=== PATIENT | male | born 1950 | race Caucasian/White ===

== ENCOUNTER 2021-07-16 11:21 | Outpatient (CLI) | payer OTHER | END 2021-07-16 15:15 | disposition home or self-care (01) | LOC: LAB 11:21 | PROVIDERS: ATTEND Internal Medicine | DX: U07.1 COVID-19 (principal); Z20.822 Contact with and (suspected) exposure to COVID-19 ==

== ENCOUNTER 2021-10-21 10:28 | Outpatient (CLI) | payer OTHER | END 2021-10-21 10:30 | disposition home or self-care (01) | LOC: LAB 10:28 | DX: Z03.818 Encounter for observation for suspected exposure to other biological agents ruled out (principal) ==

== ENCOUNTER 2022-01-20 10:18 | Outpatient (CLI) | payer OTHER | END 2022-01-20 13:47 | disposition home or self-care (01) | LOC: LAB 10:18 | DX: C61 Malignant neoplasm of prostate (principal); Z03.818 Encounter for observation for suspected exposure to other biological agents ruled out ==

== ENCOUNTER 2022-03-16 08:23 | Outpatient (CLI) | payer OTHER | END 2022-03-16 08:24 | disposition home or self-care (01) | LOC: LAB 08:23 | DX: E11.9 Type 2 diabetes mellitus without complications (principal); E03.9 Hypothyroidism, unspecified; E78.5 Hyperlipidemia, unspecified; C61 Malignant neoplasm of prostate ==

== ENCOUNTER 2022-05-06 14:14 | Outpatient (CLI) | payer OTHER | END 2022-05-06 14:16 | disposition home or self-care (01) | LOC: LAB 14:14 | PROVIDERS: ATTEND Ophthalmology | DX: Z03.818 Encounter for observation for suspected exposure to other biological agents ruled out (principal) ==

== ENCOUNTER → 2022-07-07 11:34 | Outpatient (CLI) | payer OTHER | END | disposition home or self-care (01) | LOC: LAB 11:34 | PROVIDERS: ATTEND Internal Medicine | DX: U07.1 COVID-19 (principal); Z20.822 Contact with and (suspected) exposure to COVID-19 ==

== ENCOUNTER → 2022-07-21 11:17 | Outpatient (CLI) | payer OTHER | END | disposition home or self-care (01) | LOC: LAB 11:17 | PROVIDERS: ATTEND Internal Medicine | DX: N39.0 Urinary tract infection, site not specified (principal); N40.0 Benign prostatic hyperplasia without lower urinary tract symptoms; Z12.5 Encounter for screening for malignant neoplasm of prostate; C61 Malignant neoplasm of prostate ==

== ENCOUNTER 2022-08-31 10:43 | Outpatient (CLI) | payer OTHER | END 2022-08-31 10:47 | disposition home or self-care (01) | LOC: LAB 10:43 | PROVIDERS: ATTEND Internal Medicine | DX: U07.1 COVID-19 (principal) ==

== ENCOUNTER 2022-09-08 14:22 | Emergency (ER) | payer OTHER ==
[~2022-09-08] VITALS: Ht 170.2 cm; Wt 77.1 kg
[2022-09-08] MEDS ORDERED: METFORMIN HCL500 M4 PO (15:06)
== END 2022-09-08 18:46 | disposition home or self-care (01) ==
LOC: ER 14:22
DX: M25.511 Pain in right shoulder (principal); E11.9 Type 2 diabetes mellitus without complications; Z79.84 Long term (current) use of oral hypoglycemic drugs